=== PATIENT | male | born 1975 | race Caucasian/White ===

== ENCOUNTER 2017-02-27 04:50 | Emergency (ER) | payer OTHER ==
[~2017-02-27] VITALS: Ht 188 cm; Wt 118.2 kg
[~2017-02-27 04:50] MED LIST: FLUO40CA12 PO; IBUP800T28 PO; OMEP20TA86 PO; OXYC-530 PO; POLY17PO6 PO
--- NOTE | 2017-02-27 04:53 | ED.REPORT ---
HPI-Psychiatric Illness Date of Service Feb 27, 2017 ED Provider: Magdiel Marrufo MD The pt is a 41 y/o male with hx of depression who presents to the ED by [place] [employer] after he was found "wondering" and states that his "life is falling apart". The patient reports that he has been using meth over the past week. Patient states that he was "found digging his out of a field" and tried to "check in to a rehab center that wasn't there". The patient thinks that his bizarre behavior is due from the meth use. Per police, the patient had also reported seeing people prior to arrival to the ED. Patient is an unreliable historian given his current meth abuse. Nursing Notes Stated Complaint: MENTAL HEALTH Chief Complaint: Hallucination Nursing Notes Reviewed: Yes Allergies: Coded Allergies: hydroxyzine (Verified Allergy, Unknown, nightmares, 02/27/17) Uncoded Allergies: LOCAL ANESTHETICS (Allergy, Unknown, 11/20/14) TOMATOES (Allergy, Unknown, 02/26/16) Scheduled Fluoxetine (Prozac) 40 Mg Capsule 40 MG PO DAILY Omeprazole (Omeprazole) 20 Mg Tablet.dr 20 MG PO BID Polyethylene Glycol 3350 (Miralax) 17 Gm Powd.pack 17 GM PO DAILY Scheduled PRN Ibuprofen (Ibuprofen) 800 Mg Tablet 800 MG PO TID PRN PRN For Pain oxyCODONE (oxyCODONE) 5 Mg Tablet 5 MG PO Q4H PRN PRN For Moderate Pain General Time Seen by MD: 05:08 Chief Complaint Bizarre behavior Hx Obtained From: Patient Unable to Obtain Hx: Patient condition (meth abuse) Arrived By: Police Onset Occurred: Onset unknown Context of Onset: Intoxicated, illicit drug Associated with: Reports: Agitation Recent Healthcare: No recent doctor visit, No recent hospitalization Similar Sx Previous: No Risk-Psychiatric Illness Suicide Risk Stratification Suicide Risk Factors - Adult: : Substance abuseNo: Previous attempt, Prior psych admission RF Statements: Risk factors reviewed Past Medical History Past Medical History Chronic back pain Reports: GERD Reports: Depression Family History Noncontributory Smoking History Unknown if Ever Smoker Social History The patient has multiple ED visits in the past but has not been in the ED for a few years. He is currently living in [place]. Drug Use: Cocaine, Meth, THC, Other (heroin) Other Social History: Homeless Ambulatory Status Independent Review of Systems Unable to Obtain ROS Patient condition (meth abuse) Psychiatric: Reports: Agitation, Hallucinations, visual Complete sys rev & neg: except as marked. Physical Exam Initial Vital Signs Vital Signs (First) Date Time Temp Pulse Resp B/P Pulse Ox O2 Delivery O2 Flow Rate FiO2 02/27/17 05:07 113 26 136/92 100 Room Air Initial VS: Reviewed, Vital signs abnormal General/Constitutional: Awake, Alert Neurologic: No motor deficits NEUROLOGIC: Pressured speech Abnormal Mood/Affect: Positive: Pressured speech Agitated tweaking Head / Eyes: Atraumatic, Normocephalic Respiratory / Chest: Atraumatic, Breath sounds NL, Breath sounds = bilat, No respiratory distress Cardiovascular: Regular rhythm, Heart sounds NL, No murmurs Heart Rate / Rhythm: Positive: Tachycardia (mild) Abdomen: Atraumatic, Soft, Non-tender Skin: Atraumatic, Warm, Dry LOWER EXTREMITIES: muddy blistered feet constant extremity movements Interpretation & Diagnostics Lab Results Interpretation Result Diagram: 02/27/17 0537 Test 02/27/17 05:37 White Blood Count 8.9th/mm3 (3.8-10.1) Red Blood Count 5.02mil/mm3 (4.40-5.80) Hemoglobin 16.3g/dL (13.8-17.2) Hematocrit 45.9% (41.0-50.0) Mean Corpuscular Volume 91.4fL (81-100) Mean Corpuscular Hemoglobin 32.5pg (27.0-35.0) Mean Corpuscular Hemoglobin Concent 35.5% (32.0-37.0) Red Cell Distribution Width 12.5% (12.3-15.4) Platelet Count 190bil/L (150-400) Neutrophils (%) (Auto) 66.6% (40-74) Lymphocytes (%) (Auto) 24.4% (14-46) Monocytes (%) (Auto) 7.3% (4-12) Eosinophils (%) (Auto) 1.3% (0-5) Basophils (%) (Auto) 0.3% (0-3) Re-Eval/Medical Decision Med Decision/Clinical Course Meth intoxication with psychotic features and hyperactivity. He refuses IV and Ativan. Laboratory testing was ordered to include CPK, all pending. His care is being turned over change shift to Dr. Mi Salas. Source of Hx: Old records Re-Evaluation/Progress : Time of Eval: 05:59 Re-Evaluation/Progress Note: Patient has refused his Ativan. Discharge & Departure Shift Change Sign-Out Patient Care Transferred: Yes Discussed Complaint(s): Yes Impression: Primary Impression: Methamphetamine abuse Referrals: Yohana Castillo DO (PCP) Care Transferred to: Dr. Oquendo Care Transferred at: 06:00 Scribe Attestation Portion of this note were transcribed by Yadira Fernandez and Kylee Jolley. I, Dr. Magdiel Marrufo personally performed the history, physical exam and medical decision-making; I reviewed and confirmed the accuracy of the information in the transcribed note. Signed by: Yadira Fernandez and Chris Horne, 02/27/17. copies to: Yohana Castillo Howard L MD Feb 27, 2017 04:53 Yadira Fernandez Feb 27, 2017 05:05 Magui Jolley Feb 27, 2017 06:00
[2017-02-27 05:07] VITALS: BP 136/92; PULSE 113; RESP 26; O2SAT 100
[2017-02-27] MEDS ORDERED: LORazepam 2 mg Tablet PO ONE (05:15)
[2017-02-27 05:54] LABS: BASOPHILS % (AUTO) 0.3 % (0-3); EOSINOPHILS % (AUTO) 1.3 % (0-5); MONOCYTES % (AUTO) 7.3 % (4-12); Mean Corpuscular Hemoglobin 32.5 pg (27.0-35.0); Mean Corpuscular Volume 91.4 fL (81-100); NEUTROPHILS % (AUTO) 66.6 % (40-74); Platelet Count 190 bil/L (150-400)
[2017-02-27 06:02] LABS: TROPONIN T 0.01 ug/L (0.0-0.011)
[2017-02-27 06:14] LABS: Magnesium 1.8 mg/dL (1.6-2.6)
[2017-02-27 10:02] VITALS: BP 112/69; PULSE 97; RESP 20; O2SAT 100
[2017-02-27 10:21] VITALS: BP 112/69; PULSE 97; RESP 20; O2SAT 100
== END 2017-02-27 10:22 | disposition home or self-care (01) ==
LOC: SED 04:50
DX: F23 Brief psychotic disorder (principal); F15.129 Other stimulant abuse with intoxication, unspecified; F32.9 Major depressive disorder, single episode, unspecified; K21.9 Gastro-esophageal reflux disease without esophagitis; Z59.0 Homelessness; Z88.8 Allergy status to other drugs, medicaments and biological substances